=== PATIENT | male | born 1945 | race Hispanic/Latino ===

== ENCOUNTER → 2020-10-30 | Emergency (ER) | payer MEDICARE ==
[~2020-10-30] VITALS: Ht 172.7 cm; Wt 78.0 kg
[~2020-10-30] MED LIST: CARVEDILOL 12.5 MG TAB PO ONE
[2020-10-30 18:51] LABS: BASOPHILS % 0.1 % (0.0-1.0); EOSINOPHILS % 0.1 % (0.0-6.0); HEMATOCRIT 37.1 % (38.2-49.6); LYMPHOCYTES # (AUTO) 0.9 (1.0-3.2); LYMPHOCYTES % 5.9 % (18.0-39.1); MEAN CORPUSCULAR HEMOGLOBIN 30.8 pg (28-32); MEAN CORPUSCULAR HGB CONC 32.3 g/dL (31-35); MEAN CORPUSCULAR VOLUME 95.1 fL (81-99); MONOCYTES # (AUTO) 0.8 (0.2-0.8); MONOCYTES % 5.5 % (4.4-11.3); NEUTROPHILS # (AUTO) 12.8 (2.1-6.9); NEUTROPHILS % 87.7 % (38.7-80.0); PLATELET COUNT 305 x10e3/uL (140-360); RED CELL DISTRIBUTION WIDTH 14.1 % (11.7-14.4)
[2020-10-30 19:02] LABS: INR 1.21; PROTHROMBIN TIME 15.6 seconds (11.9-14.5)
[2020-10-30 19:03] LABS: PARTIAL THROMBOPLASTIN TIME 33.9 seconds (23.8-35.5)
[2020-10-30 19:17] LABS: ALBUMIN 3.5 g/dL (3.5-5.0); ALBUMIN/GLOBULIN RATIO 0.8 (0.8-2.0); ANION GAP 18.2 mmol/L (8-16); CALCIUM 9.4 mg/dL (8.4-10.2); CREATININE, SERUM 1.26 mg/dL (0.72-1.25); POTASSIUM 3.2 mmol/L (3.5-5.1)
[2020-10-30 19:23] LABS: CREATINE KINASE MB 0.9 ng/mL (0-5.0)
[2020-10-30 22:30] VITALS: BP 128/65
== END | disposition home or self-care (01) ==
LOC: ER 19:00
DX: I48.20 Chronic atrial fibrillation, unspecified (principal); R53.1 Weakness; R94.31 Abnormal electrocardiogram [ECG] [EKG]; E11.65 Type 2 diabetes mellitus with hyperglycemia; I10 Essential (primary) hypertension; E78.5 Hyperlipidemia, unspecified; I50.9 Heart failure, unspecified
CPT/HCPCS: 36415; 71045; 80053; 82550; 82553; 83880; 84484; 85025; 85610; 85730; 99284

== ENCOUNTER → 2020-11-03 | Outpatient (CLI) | payer MEDICARE | LOC: RAD 10:05 | PROVIDERS: ATTEND Nurse Practitioner Adult Health | DX: I50.9 Heart failure, unspecified (principal); M25.552 Pain in left hip; M79.605 Pain in left leg | CPT/HCPCS: 71046 ==